=== PATIENT | female | born 1975 | race Caucasian/White ===

== ENCOUNTER 2025-03-22 19:42 | Emergency (ER) | payer BC, OTHER ==
[2025-03-22] MEDS ORDERED: Ketorolac Tromethamine 30 MG (1 mL) VIAL ONE (20:17)
[2025-03-22] MEDS ORDERED: Boostrix 0.5 ML (Tdap) VIAL (>/=7 yrs of age) ONE (20:18)
[2025-03-22] MEDS ORDERED: Amoxicillin/Potassium Clav 875 MG TAB ONE (20:18)
== END 2025-03-22 21:05 | disposition home or self-care (01) ==
LOC: CSHERS 19:42
DX: S71.152A Open bite, left thigh, initial encounter (principal); Z23 Encounter for immunization; W54.0XXA Bitten by dog, initial encounter
CPT/HCPCS: 90715; J1885